=== PATIENT | female | born 1995 | race Caucasian/White ===

== ENCOUNTER 2020-07-16 07:31 | Outpatient (REF) | payer OTHER, SELFPAY ==
[2020-07-16 07:49] LABS: COVID-19 Test Negative (Negative)
== END 2020-07-16 07:32 | disposition home or self-care (01) ==
LOC: HO.LAB 07:31
PROVIDERS: Visit Provider Internal Medicine
DX: Z20.822 Contact with and (suspected) exposure to COVID-19 (principal)
CPT/HCPCS: 36415; 87635; C9803

== ENCOUNTER 2022-10-24 19:35 | Emergency (ER) | payer OTHER, SELFPAY ==
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
[2022-10-24 19:43] VITALS: BP 135/79; PULSE 80; RESP 18; TEMP 36.6; O2SAT 98; BMI 31.9
[2022-10-24] MEDS: Bacitracin Oint 0.9 GM PACKET 1 APPL TOPICAL (19:50)
== END 2022-10-24 20:13 | disposition home or self-care (01) ==
PROVIDERS: Emergency Provider Internal Medicine; PCP Pediatrics
DX: T23.101A Burn of first degree of right hand, unspecified site, initial encounter (principal); T31.0 Burns involving less than 10% of body surface; X10.2XXA Contact with fats and cooking oils, initial encounter; Y93.9 Activity, unspecified; Y92.9 Unspecified place or not applicable; Y99.9 Unspecified external cause status
CPT/HCPCS: 16020; 99282; 99283